=== PATIENT | male | born 2000 | race Caucasian/White ===

== ENCOUNTER 2023-06-21 09:34 | Emergency (ER) | payer MEDICARE, OTHER ==
[2023-06-21] MEDS ORDERED: ACETAMINOPHEN 325 MG TABLET (FP) PO ONE (10:01)
[2023-06-21] MEDS ORDERED: ACETAMINOPHEN 325 MG TABLET (FP) ONE (10:17)
[2023-06-21 10:38] VITALS: BP 110/72; PULSE 93; RESP 16; TEMP 98; BMI 33.6
[2023-06-21 11:18] LABS: EPITHELIAL CELLS 0-5 /hpf
[2023-06-21 11:19] LABS: URINE MUCUS FEW; URINE SPERM PRESENT
== END 2023-06-21 12:11 | disposition home or self-care (01) ==
LOC: FER 09:34
DX: N50.811 Right testicular pain (principal); N50.82 Scrotal pain; I86.1 Scrotal varices; N50.812 Left testicular pain
CPT/HCPCS: 36415; 76870-TC; 81003; 81015; 87086; 87491; 87591; 99284-25